=== PATIENT | male | born 1950 | race Caucasian/White ===

== ENCOUNTER 2021-01-25 08:05 | Outpatient (CLI) | payer MEDICARE ==
[2021-01-25] MEDS ORDERED: INSU100I13 SC (09:16)
[2021-01-25] MEDS ORDERED: GLIM2TAB7 PO (09:16)
[2021-01-25] MEDS ORDERED: POTASSIUM CITRATE PO (09:16)
[2021-01-25] MEDS ORDERED: METF500T17 PO (09:16)
[2021-01-25] MEDS ORDERED: ATOR40TA78 PO (09:45)
[2021-01-25] MEDS ORDERED: TAMS-11 PO (09:45)
[2021-01-25] MEDS ORDERED: METO25TA91 PO (09:45)
[2021-01-25] MEDS ORDERED: CHOL10003 PO (09:46)
[2021-01-25] MEDS ORDERED: ALBU8.5H8 INH (09:46)
[2021-01-25] MEDS ORDERED: ASPI81TA45 PO (09:46)
[2021-01-25] MEDS ORDERED: FOLI1TAB5 PO (09:46)
[2021-01-25] MEDS ORDERED: FINA5TAB4 PO (09:46)
[2021-01-25] MEDS ORDERED: CLOP75TA PO (09:46)
[2021-01-25] MEDS ORDERED: ALBU5SOL6 INH (09:46)
[2021-01-25] MEDS ORDERED: DOCU100T6 PO (09:46)
[2021-01-25] MEDS ORDERED: FLUT12HF3 IH (09:46)
[2021-01-25 10:10] LABS: BASOPHILS % (AUTO) 1 % (0-1); EOSINOPHILS % (AUTO) 2 % (1-7); LYMPHOCYTES % (AUTO) 22 % (22-44); MEAN CORPUSCULAR HEMOGLOBIN 28.6 pg (27.5-34.5); MEAN CORPUSCULAR HGB CONC 32.8 g/dL (33.2-36.2); MONOCYTES % (AUTO) 8 % (2-9); NEUTROPHILS % (AUTO) 67 % (42-75); PLATELET COUNT 218 x10^3/uL (130-400); RED BLOOD COUNT 4.42 x10^6/uL (4.38-5.82); RED CELL DISTRIBUTION WIDTH 13.5 % (9.4-14.8)
[2021-01-25 10:13] LABS: MD NO
[2021-01-25 10:17] LABS: MICROSCOPIC INDICATED
[2021-01-25 10:20] LABS: ALANINE AMINOTRANSFERASE 31 U/L (12-78); CREATININE 1.01 mg/dL (0.7-1.3)
[2021-01-25 10:21] LABS: PROTHROMBIN TIME 10.7 Seconds (9.6-11.5)
[2021-01-25 10:27] LABS: ALKALINE PHOSPHATASE 93 U/L (45-117); BILIRUBIN,TOTAL 0.4 mg/dL (0.2-1.0)
[2021-01-25 11:12] LABS: ANION GAP 4 mmol/L (5-15); CHLORIDE 111 mmol/L (98-107)
== END 2021-01-25 23:59 | disposition home or self-care (01) ==
LOC: STAR 08:05
PROVIDERS: ATTEND Urology
DX: Z01.812 Encounter for preprocedural laboratory examination (principal); Z20.822 Contact with and (suspected) exposure to COVID-19; N20.0 Calculus of kidney
CPT/HCPCS: 36415; 80053; 81001; 85025; 85610; 85730; 87086; 93005; U0003

== ENCOUNTER 2021-01-31 09:11 | Day surgery (SDC) | payer MEDICARE, OTHER ==
[~2021-01-31] VITALS: Ht 188 cm; Wt 104.8 kg
[~2021-01-31 09:11] MED LIST: ALBU5SOL6 INH; ALBU8.5H8 INH; ASPI81TA45 PO; ATOR40TA78 PO; CHOL10003 PO; CLOP75TA PO; DOCU100T6 PO; FINA5TAB4 PO; FLUT12HF3 IH; FOLI1TAB5 PO; GLIM2TAB7 PO; INSU100I13 SC; METF500T17 PO; METO25TA91 PO; METOPROLOL 1 MG/ML, 5ML ONE; POTASSIUM CITRATE PO; TAMS-11 PO
[2021-01-31] MEDS ORDERED: CHLORHEXIDINE 15 ML UDC PO ONE (10:30)
[2021-01-31] MEDS ORDERED: LACTATED RINGERS 1,000 ML IV SCH (10:30)
[2021-01-31] MEDS ORDERED: LIDOCAINE 2% 100MG/5ML SYRINGE ONE (11:17)
[2021-01-31] MEDS ORDERED: DEXAMETHASONE 4 MG/ML, 1ML ONE (11:17)
[2021-01-31] MEDS ORDERED: FENTANYL PF 100 MCG/2ML ONE ×3 (11:17→13:17)
[2021-01-31] MEDS ORDERED: ONDANSETRON 2MG/ML, 2ML ONE (11:17)
[2021-01-31] MEDS ORDERED: PROPOFOL 10 MG/ML, 20ML ONE (11:17)
[2021-01-31] MEDS ORDERED: CEFAZOLIN 1,000 MG ONE (11:30)
[2021-01-31] MEDS ORDERED: WATER-INJECTION,STERILE 10 ML IV ONE (11:30)
[2021-01-31] MEDS ORDERED: METOCLOPRAMIDE 5 MG/ML, 2ML IV PRN (12:00)
[2021-01-31] MEDS ORDERED: OXYcodone 5 MG/5 ML ORAL.SOL UDC PO PRN (12:00)
[2021-01-31] MEDS ORDERED: morphine SULFATE 10 MG/ML, 1ML IV PRN (12:00)
[2021-01-31] MEDS ORDERED: LABETALOL 5MG/ML, 20ML IV PRN (12:00)
[2021-01-31] MEDS ORDERED: ONDANSETRON 2MG/ML, 2ML IVPush PRN (12:00)
[2021-01-31] MEDS ORDERED: MIDAZOLAM 1 MG/ML, 2ML IV PRN (12:00)
[2021-01-31] MEDS ORDERED: MEPERIDINE/PF 25MG/0.5ML IVPush PRN (12:00)
[2021-01-31] MEDS ORDERED: PROMETHAZINE 25 MG/ML, 1ML IV PRN (12:00)
[2021-01-31] MEDS ORDERED: HYDROmorphone 2 MG/ML, 1ML IVPush PRN (12:00)
[2021-01-31] MEDS ORDERED: hydrALAzine 20 MG/ML, 1ML IV PRN (12:00)
[2021-01-31] MEDS ORDERED: ALBUTEROL SULFATE 2.5 MG/3 ML NPPB PRN (12:00)
[2021-01-31] MEDS ORDERED: OXYcodone 5 MG/5 ML ORAL.SOL UDC ONE ×2 (13:18→13:21)
[2021-01-31] MEDS: FENTANYL PF 100 MCG/2ML IV PRN ×2 (13:20→13:25)
[2021-01-31] MEDS ORDERED: HYDROmorphone 1 MG/ML, 1ML INJ ONE (13:30)
== END 2021-01-31 14:30 | disposition home or self-care (01) ==
LOC: OUT 09:11
PROVIDERS: ATTEND Urology
DX: N20.1 Calculus of ureter (principal); I10 Essential (primary) hypertension; E11.9 Type 2 diabetes mellitus without complications; E66.9 Obesity, unspecified; Z79.899 Other long term (current) drug therapy; Z87.442 Personal history of urinary calculi; Z87.891 Personal history of nicotine dependence; Z98.890 Other specified postprocedural states
CPT/HCPCS: 52356; 74018; 82360; 82962; 88300; C1769; C2617; J0690; J1100; J1170; J2405; J2704; J3010; J7120; 76000